=== PATIENT | female | born 1935 | race Caucasian/White ===

== ENCOUNTER 2019-11-26 11:52 | Emergency (ER) | payer MEDICARE, BC ==
[~2019-11-26] VITALS: Ht 160 cm; Wt 76.4 kg
[2019-11-26] MEDS ORDERED: HCTZ 25MG TAB25 MG PO (12:41)
[2019-11-26] MEDS ORDERED: ELIQUIS 5MG PO (12:41)
[2019-11-26] MEDS ORDERED: SINEMET CR1 UDTAB.S1 PO (12:42)
[2019-11-26 12:45] LABS: BASO % 0.5 % (0.0-2.0); EOS # 0.1 (0.0-0.7); EOS % 1.5 % (0-4.0); GRAN # 4.1 (1.4-6.5); GRAN % 63.6 % (42.2-75.2); HEMATOCRIT 41.6 % (37.0-47.0); HEMOGLOBIN 13.7 g/dl (12.5-16.0); LYMPH # 1.8 (1.2-3.4); LYMPH % 27.3 % (20.0-51.0); MEAN CELL VOLUME 88 fl (80.0-100.0); MEAN CORPUSCULAR HEMOGLOBIN 29 pg (27.0-31.0); MEAN CORPUSCULAR HGB CONC 33 g/dl (33.0-37.0); MONO # 0.4 (0.1-0.6); MONO % 6.8 % (1.7-9.3); PLATELET COUNT 203 K/mm3 (130-400); RED BLOOD COUNT 4.74 M/mm3 (4.10-5.30); REDCELL DISTRIBUTION WIDTH-CV 14.7 % (11.5-14.5)
[2019-11-26] MEDS ORDERED: ZETIA 10MG TAB10 MG PO (12:46)
[2019-11-26 12:48] LABS: INR 1.4 (0.8-3.0)
[2019-11-26 12:50] LABS: PARTIAL THROMBOPLASTIN TIME 38.3 SECONDS (26.0-37.0)
[2019-11-26 12:56] LABS: ALBUMIN 4.6 gm/dL (3.5-5.0); BILIRUBIN,TOTAL 0.6 mg/dL (0.0-1.0); CALCIUM 9.2 mg/dL (8.4-10.2); CREATININE, serum 0.66 (0.52-1.25); MAGNESIUM 1.7 mg/dL (1.6-2.3); POTASSIUM 3.2 mmol/L (3.4-5.0); TOTAL PROTEIN 7.9 gm/dL (6.4-8.2)
[2019-11-26] MEDS ORDERED: LIORESAL 1010 MG/TAB PO (13:11)
[2019-11-26] MEDS ORDERED: LIPITOR 80MG80 MG PO (13:11)
[2019-11-26] MEDS ORDERED: MULTI VITAMINS1 TAB PO (13:12)
[2019-11-26] MEDS ORDERED: CALCIUM 600MG+D1 TAB PO (13:12)
[2019-11-26 13:25] LABS: TSH w REFLEX 0.278 uIU/mL (0.465-4.680)
[2019-11-26] MEDS ORDERED: FOLIC ACID0.4 MG PO (13:26)
[2019-11-26] MEDS ORDERED: MIRALAX PA17 GM/Dose PO (13:26)
[2019-11-26] MEDS ORDERED: INDERAL LA120 MG PO (13:27)
[2019-11-26] MEDS ORDERED: TOPAMAX50 MG PO (13:28)
[2019-11-26] MEDS ORDERED: MULTAQ400 MG PO (15:47)
[2019-11-26 15:58] VITALS: BP 123/64; PULSE 64; TEMP 98.6
== END 2019-11-26 16:25 | disposition home or self-care (01) ==
LOC: COL.ER 11:52
PROVIDERS: Emergency Medicine
DX: I48.91 Unspecified atrial fibrillation (principal); Z79.01 Long term (current) use of anticoagulants
CPT/HCPCS: J0282; J2405; J2704; J3475; J7030; J7060